=== PATIENT | female | born 1965 | race African-American/Black ===

== ENCOUNTER 2019-12-21 17:42 | Inpatient (IN) | payer MEDICAID ==
[~2019-12-21] VITALS: Ht 167.6 cm; Wt 92.2 kg
[~2019-12-21 17:42] MED LIST: BUSP5TAB20 PO; DSS100 PO; NALT50TA6 PO; OLAN5TAB40 PO; OMEP20 PO; PARO10TA89 PO
[2019-12-21] MEDS ORDERED: CEPHALEXIN MONOHYDRATE 500 MG CAPSULE PO ONE (23:45)
[2019-12-21] MEDS ORDERED: SULFAMETHOX/TRIMETH DS 800-160 MG/TABLET PO ONE (23:45)
[2019-12-22] MEDS ORDERED: ZOLPIDEM TARTRATE 10 MG TABLET PO PRN (00:45)
[2019-12-22] MEDS ORDERED: HALOPERIDOL 5 MG TABLET PO PRN (00:45)
[2019-12-22] MEDS: LORazepam 2 MG TABLET PO PRN ×2 (01:21→17:01)
[2019-12-22] MEDS ORDERED: LORazepam 1 MG TABLET PO ONE (01:45)
[2019-12-22] MEDS ORDERED: HALOPERIDOL 5 MG TABLET PO ONE (01:45)
[2019-12-22 03:32] VITALS: BP 138/76
[2019-12-22] MEDS ORDERED: PNEUMOCOCCAL VACCINE POLYVALENT 0.5 ML VIAL [PPSV23] IM ONE (03:45)
[2019-12-22 04:05] VITALS: BP 138/76
[2019-12-22 08:30] VITALS: BP 121/70
[2019-12-22] MEDS ORDERED: NICOTINE 14 MG/24 HOUR PATCH TD PRN (09:15)
[2019-12-22] MEDS ORDERED: MAGNESIUM HYDROXIDE SUSPENSION 30 ML UDCUP PO PRN (09:15)
[2019-12-22] MEDS ORDERED: ALBUTEROL SULFATE HFA 90 MCG/PUFF 8 GM INHALER IH PRN (09:15)
[2019-12-22] MEDS ORDERED: IBUPROFEN 400 MG TABLET PO PRN (09:15)
[2019-12-22] MEDS ORDERED: ACETAMINOPHEN 325 MG TABLET PO PRN (09:15)
[2019-12-22] MEDS ORDERED: MAG HYDROX/AL HYDROX/SIMETH ES 30 ML SUSPENSION UDCUP PO PRN (09:15)
[2019-12-22] MEDS ORDERED: CloNIDine HCL 0.1 MG TABLET PO PRN (09:15)
[2019-12-22] MEDS ORDERED: ONDANSETRON HCL 4 MG TABLET PO PRN (09:15)
[2019-12-22] MEDS ORDERED: PETROLATUM,WHITE 28 GM JELLY TP PRN (09:15)
[2019-12-22] MEDS ORDERED: DOCUSATE SODIUM 100 MG CAPSULE PO PRN (09:15)
[2019-12-22] MEDS ORDERED: GuaiFENesin/D-METHORPHAN [SUGAR-FREE] 200-20MG/10 ML SYRUP UDCUP PO PRN (09:15)
[2019-12-22] MEDS ORDERED: LOPERAMIDE HCL 2 MG CAPSULE PO PRN (09:15)
[2019-12-22 09:59] LABS: BASOPHILS % (AUTO) 0.4 % (0.0-2.0); EOSINOPHILS % (AUTO) 0.5 % (1.0-6.0); HEMATOCRIT 37.8 % (36-46); LYMPHOCYTES # (AUTO) 0.9 K/uL (1.0-4.8); LYMPHOCYTES % (AUTO) 9.7 % (22.0-44.0); MEAN CORPUSCULAR HEMOGLOBIN 24.7 pg (26.0-34.0); MEAN CORPUSCULAR HGB CONC 31.7 G/dL (31.0-37.0); MEAN CORPUSCULAR VOLUME 78 fL (80-100); MONOCYTES % (AUTO) 10.8 % (2.0-9.0); NEUTROPHILS # (AUTO) 7.1 K/uL (1.8-7.7); NEUTROPHILS % (AUTO) 78.6 % (40.0-70.0); PLATELET COUNT (AUTO) 330 K/uL (150-450); RED BLOOD CELL COUNT(AUTO) 4.84 MIL/uL (4.00-5.20); RED CELL DISTRIBUTION WIDTH 14.5 % (11.5-14.5)
[2019-12-22 10:13] LABS: ALANINE AMINOTRANSFERASE 23 U/L (12-78); ALBUMIN 3.7 g/dL (3.4-5.0); ALKALINE PHOSPHATASE 110 U/L (46-116); ANION GAP 8 mmol/L (8-16); ASPARTATE AMINOTRANSFERASE 16 U/L (15-37); BILIRUBIN,TOTAL 0.6 mg/dL (0.1-1.0); CALCIUM, TOTAL 9.3 mg/dL (8.8-10.5); CARBON DIOXIDE 30 mmol/L (22-29); CHLORIDE 103 mmol/L (98-107); CREATININE 0.98 mg/dL (0.60-1.30); GLOMERULAR FILTR. RATE CALC > 60 mL/min (>60); GLUCOSE,RANDOM 104 mg/dL (70-110); POTASSIUM 4.1 mmol/L (3.5-5.1); SODIUM SERUM 141 mmol/L (136-145); TOTAL PROTEIN, SERUM 8.2 g/dL (6.4-8.2); UREA NITROGEN, BLOOD 17 mg/dL (7-18)
[2019-12-22] MEDS ORDERED: DOCU-275 PO (16:31)
[2019-12-22 17:12] VITALS: BP 118/70
[2019-12-22] MEDS: QUEtiapine FUMARATE 200 MG TABLET PO SCH (20:19)
[2019-12-23] MEDS: DOCUSATE SODIUM 100 MG CAPSULE PO SCH (08:22)
[2019-12-23] MEDS: QUEtiapine FUMARATE 200 MG TABLET PO SCH ×2 (08:22→20:31)
[2019-12-23] MEDS: OMEPRAZOLE 20 MG CAPSULE PO SCH (08:26)
[2019-12-23 08:30] VITALS: BP 113/64
[2019-12-23 16:41] VITALS: BP 109/66
[2019-12-24] MEDS: QUEtiapine FUMARATE 200 MG TABLET PO SCH ×2 (08:10→20:28)
[2019-12-24] MEDS: DOCUSATE SODIUM 100 MG CAPSULE PO SCH (08:10)
[2019-12-24] MEDS: OMEPRAZOLE 20 MG CAPSULE PO SCH (08:15)
[2019-12-24 08:28] VITALS: BP 114/83
[2019-12-24 18:08] VITALS: BP 138/87
[2019-12-25] MEDS: DOCUSATE SODIUM 100 MG CAPSULE PO SCH (08:20)
[2019-12-25] MEDS: QUEtiapine FUMARATE 200 MG TABLET PO SCH ×2 (08:20→20:33)
[2019-12-25 10:36] VITALS: BP 132/69
[2019-12-25 13:28] VITALS: BP 140/86
[2019-12-25 14:38] VITALS: BP 132/70
[2019-12-25 16:27] VITALS: BP 116/69
[2019-12-26] MEDS: QUEtiapine FUMARATE 200 MG TABLET PO SCH (08:38)
[2019-12-26] MEDS: DOCUSATE SODIUM 100 MG CAPSULE PO SCH (08:38)
[2019-12-26 09:19] VITALS: BP 112/71
[2019-12-26] MEDS ORDERED: QUET200T PO (09:53)
== END 2019-12-26 15:20 | disposition home or self-care (01) | DRG 885 ==
LOC: EMS 17:43 → 3EI 12-22 01:30
PROVIDERS: ADMIT Psychiatry & Neurology Child & Adolescent Psychiatry; ATTEND Psychiatry & Neurology Child & Adolescent Psychiatry
DX: F25.9 Schizoaffective disorder, unspecified (principal); R45.851 Suicidal ideations; I10 Essential (primary) hypertension; J44.9 Chronic obstructive pulmonary disease, unspecified; K21.9 Gastro-esophageal reflux disease without esophagitis; K59.00 Constipation, unspecified; F41.9 Anxiety disorder, unspecified; M19.90 Unspecified osteoarthritis, unspecified site; Z59.0 Homelessness
CPT/HCPCS: G0480